=== PATIENT | male | born 1985 | race African-American/Black ===

== ENCOUNTER 2018-07-05 17:19 | Emergency (ER) | payer OTHER ==
[2018-07-05 17:53] VITALS: BP 107/73; PULSE 60; TEMP 98.4; BMI 23.7
[2018-07-05] MEDS ORDERED: ERYTHROMYCIN 0.5% OPHTHALMIC OINTMENT 3.5 GM TUBE OS ONE (18:31)
--- NOTE | 2018-07-05 18:31 | PDOC ---
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 Patient states I is mildly irritated but has no visual changes. No drainage from his eyes. Feels may have a scratch to the upper inner aspect/canthus of right eye. Timing/Duration: unsure, 24 hours Severity: mild Associated Symptoms: reports: denies symptoms. denies: fever/chills, headaches Past History - Travel Traveled outside of the country in the last 30 days: No Close contact w/someone who was outside of country & ill: No - Past Medical History Allergies/Adverse Reactions: Allergies Allergy/AdvReac Type Severity Reaction Status Date / Time No Known Allergies Allergy Verified 07/05/18 17:49 Home Medications: Ambulatory Orders NK [No Known Home Medication] 07/05/18 COPD: No - Suicide/Smoking/Psychosocial Hx Smoking History: Never smoked Information on smoking cessation initiated: No Hx Alcohol Use: No Drug/Substance Use Hx: No Review of Systems - Review of Systems Able to Perform ROS?: Yes Is the patient limited Swedish proficient: Yes Constitutional: Yes: Symptoms Reported, See HPI HEENTM: Yes: Symptoms Reported, See HPI, Eye Pain Respiratory: Yes: See HPI. No: Symptoms reported Integumentary: Yes: Symptoms Reported, See HPI, Other Neurological: Yes: See HPI. No: Symptoms reported, Headache All Other Systems: Reviewed and Negative *Physical Exam - Vital Signs Last Vital Signs Temp Pulse Resp BP Pulse Ox 98.4 F 60 16 107/73 100 07/05/18 17:40 07/05/18 17:40 07/05/18 17:40 07/05/18 17:40 07/05/18 17:40 - Physical Exam General Appearance: Yes: Nourished, Appropriately Dressed, Apparent Distress HEENT: positive: TMs Normal, Other (superficial abrasion to the right middle aspect of lateral nose, nontender, and no foreign body noted. Has very superficial abrasion to the inner canthus of the right upper eyelid, there is no drainage noted, no foreign bodies noted. Tetracaine and fluorescein staining of right cornea does not reveal any foreign body or abrasion. Visual acuity is 20/70 to affected eye, 2020 and left unaffected eye.) Neck: positive: Supple. negative: Tender Respiratory/Chest: positive: Lungs Clear Gastrointestinal/Abdominal: positive: Soft. negative: Normal Bowel Sounds, Tender Musculoskeletal: positive: Normal Inspection Extremity: positive: Normal Capillary Refill Integumentary: positive: Normal Color, Dry, Warm Neurologic: positive: credit balance specialist II-XII NML intact, Fully Oriented, Normal Response, Motor Strength 5/5 Medical Decision Making - Medical Decision Making 07/05/18 19:07 Used erythromycin ophthalmic ointment for slight superficial abrasion to inner canthus of right eye until healed. *DC/Admit/Observation/Transfer Diagnosis at time of Disposition: Abrasion - Discharge Dispostion Disposition: HOME Condition at time of disposition: Stable Decision to Admit order: No - Referrals - Patient Instructions Printed Discharge Instructions: DI for Abrasion Additional Instructions: Rest, avoid rubbing eyes Wash hands, use eye drops as directed, wash hands after use May use eye lubricating drops as often as needed erythromycin ointment, one thin film 3 times a day for 5 days Tylenol or ibuprofen for pain relief Avoid contact with others until redness and discharge is gone from eyes. Followup with ophthalmology in one to 2 days for thorough exam Return to emergency department for worsened pain, swelling, vision problems. - Post Discharge Activity
[2018-07-05] MEDS ORDERED: FLUORESCEIN NA 1 EA STRIP OD ONE (18:32)
[2018-07-05] MEDS ORDERED: TETRACAINE 0.5% HCL 0.6ML DROPPER.BOTTLE OD ONE (18:32)
[2018-07-05] MEDS ORDERED: TETRACAINE 0.5% OPHTH SOLN 2 ML BOTTLE ONE (18:49)
[2018-07-05] MEDS ORDERED: FLUORESCEIN NA 1 EA STRIP ONE (18:49)
[2018-07-05] MEDS ORDERED: ERYTHROMYCIN 0.5% OPHTHALMIC OINTMENT 3.5 GM TUBE ONE (18:49)
== END 2018-07-05 19:09 | disposition home or self-care (01) ==
LOC: JERFT 17:19
DX: S00.211A Abrasion of right eyelid and periocular area, initial encounter (principal); W20.8XXA Other cause of strike by thrown, projected or falling object, initial encounter; Y93.H3 Activity, building and construction; Y92.69 Other specified industrial and construction area as the place of occurrence of the external cause; Y99.0 Civilian activity done for income or pay
CPT/HCPCS: 99281-25

== ENCOUNTER 2020-11-06 17:00 | Emergency (ER) | payer OTHER ==
[2020-11-06 17:11] VITALS: BP 126/78; PULSE 89; TEMP 97; BMI 24.0
[2020-11-06] MEDS ORDERED: IBUPROFEN 600 MG TABLET (FP) PO ONE ×2 (18:02→18:10)
== END 2020-11-06 18:53 | disposition home or self-care (01) ==
LOC: JERFT 17:00
DX: S83.92XA Sprain of unspecified site of left knee, initial encounter (principal); W50.0XXA Accidental hit or strike by another person, initial encounter
CPT/HCPCS: 73562-TC-LT-FY; 73590-TC-LT-FY; 99283-25

== ENCOUNTER 2021-03-03 11:26 | Emergency (ER) | payer OTHER ==
[2021-03-03 11:47] VITALS: BP 126/76; PULSE 92; TEMP 98; BMI 23.7
== END 2021-03-03 12:05 | disposition home or self-care (01) ==
LOC: JER 11:26
DX: R05.1 Acute cough (principal); Z11.52 Encounter for screening for COVID-19
CPT/HCPCS: 99283-25; C9803; U0003; U0005

== ENCOUNTER 2023-07-12 20:52 | Emergency (ER) | payer OTHER ==
[2023-07-12 21:11] VITALS: BP 112/76; PULSE 76; RESP 18; TEMP 98.2; BMI 24.4
[2023-07-12] MEDS ORDERED: AMOX TR/POT CLAV 875MG/125MG TABLETS (FP) ONE (22:12)
[2023-07-12] MEDS: AMOX TR/POT CLAV 875MG/125MG TABLETS (FP) PO ONE (22:15)
== END 2023-07-12 22:29 | disposition home or self-care (01) ==
LOC: JER 20:52
DX: S70.352A Superficial foreign body, left thigh, initial encounter (principal); S71.142A Puncture wound with foreign body, left thigh, initial encounter; W26.8XXA Contact with other sharp object(s), not elsewhere classified, initial encounter; Y93.89 Activity, other specified; Y92.009 Unspecified place in unspecified non-institutional (private) residence as the place of occurrence of the external cause
CPT/HCPCS: 99283-25